=== PATIENT | female | born 1980 | race Caucasian/White ===

== ENCOUNTER 2019-07-25 19:20 | Emergency (ER) | payer SELFPAY ==
[~2019-07-25] VITALS: Ht 152.4 cm; Wt 77.8 kg
[2019-07-26] MEDS ORDERED: KETOROLAC 60MG/2ML VIAL IM ONE (00:45)
[2019-07-26 02:00] VITALS: BP 135/78
== END 2019-07-26 02:02 | disposition home or self-care (01) ==
LOC: ER 20:06
DX: M25.512 Pain in left shoulder (principal)
CPT/HCPCS: 73030; 96372; 99283; J1885

== ENCOUNTER 2019-10-28 20:14 | Emergency (ER) | payer MEDICAID ==
[~2019-10-28] VITALS: Ht 152.4 cm; Wt 62.0 kg
[2019-10-28] MEDS ORDERED: IBUPROFEN 600MG TABLET PO ONE (21:15)
[2019-10-28] MEDS ORDERED: SODIUM CHLORIDE 0.9% 1,000 ML IV ONE (22:54)
[2019-10-28] MEDS ORDERED: ONDANSETRON HCL 4MG/2ML INJ IV STA (22:54)
[2019-10-28] MEDS ORDERED: MORPHINE SULFATE 4 MG/ML CPJ (NOT FOR IM USE) IV STA (22:54)
[2019-10-28] MEDS ORDERED: ETOMIDATE 2MG/ML 10ML VIAL IV ONE (23:15)
[2019-10-28] MEDS ORDERED: MORPHINE SULFATE 4 MG/ML CPJ (NOT FOR IM USE) IV ONE (23:15)
[2019-10-29 12:58] VITALS: BP 107/62
== END 2019-10-29 12:58 | disposition home or self-care (01) ==
LOC: ER 20:14
DX: S52.592A Other fractures of lower end of left radius, initial encounter for closed fracture (principal); V43.52XA Car driver injured in collision with other type car in traffic accident, initial encounter; Y93.89 Activity, other specified; Y92.488 Other paved roadways as the place of occurrence of the external cause
CPT/HCPCS: 25605; 73030; 73080; 73090; 73110; 73130; 96374; 99152; 99285; J2270; J2405; J3490; J7030